=== PATIENT | female | born 1970 | race Caucasian/White ===

== ENCOUNTER → 2021-10-31 | Day surgery (SDC) | payer OTHER ==
[~2021-10-31] VITALS: Ht 162.6 cm; Wt 99.8 kg
[~2021-10-31] MED LIST: ETODOLAC500 MG PO
[2021-10-31 08:25] LABS: HCG (URINE) SCREEN NEGATIVE (NEGATIVE)
[2021-10-31 08:42] LABS: HCT 45.5 % (37.0-47.0); HGB 14.6 g/dl (12.5-16.0); MCH 29.9 pg (25.0-31.0); MCHC 32.1 g/dL (32.0-36.0); MPV 10.1 fL (6.0-9.5); RBC 4.89 M/uL (4.20-5.40); WBC 7.7 K/uL (4.0-10.5)
[2021-10-31 09:07] LABS: ALBUMIN 3.8 g/dL (3.4-5.0); BILIRUBIN - TOTAL 0.4 mg/dL (0.2-1.0); BUN/CREAT RATIO (CALC) 15.8 RATIO; CREATININE 0.76 mg/dL (0.51-0.95); GLOBULIN (CALCULATION) 3.5 g/dL; POTASSIUM 4.2 mmol/L (3.5-5.1); TOTAL PROTEIN 7.3 g/dL (6.4-8.2)
== END | disposition home or self-care (01) ==
LOC: FAS 08:06
PROVIDERS: Surgery
DX: K92.1 Melena (principal); K62.4 Stenosis of anus and rectum; K57.30 Diverticulosis of large intestine without perforation or abscess without bleeding; R10.30 Lower abdominal pain, unspecified; K59.00 Constipation, unspecified
CPT/HCPCS: 36415; 80053; 84703; J2704; J7120